=== PATIENT | female | born 1960 | race Caucasian/White ===

== ENCOUNTER → 2016-04-14 | Outpatient (CLI) | payer BC, SELFPAY ==
--- NOTE | ~2016-04-14 | MR73 ---
[facility] A Service of [facility] & [facility] RADIOLOGY TEXT RESULTS PATIENT: YAZMIN GIBBONS LOCATION: [facility] : 56 UNIT #: [id number] AGE: [address]: BEE NARANJO MD SEX: F ORDER DR: [id number] [address] [address] [id number] O MR#: [id number] Acc #: [id number] NAME: YAZMIN GIBBONS : 1960 SEX: F STUDY DATE/TIME: 04/14/2016 13:51 UNIT: [facility] ROOM: STUDY DESCRIPTION: MR Hand Wo Contrast Rt Attending Physician: Bee Naranjo M.D. Referring Physician: Bee Naranjo M.D. Ordering Physician: Bee Naranjo M.D. Primary Care Physician: Bee Naranjo M.D. MRI CENTER REPORT This report is preliminary unless electronic signature is present. EXAM MRI of the right hand without contrast. 04/14/2016. HISTORY Order states pain in right hand. History sheet states right hand pain for 1 month. Hand swelling around thumb region and pain to the touch. Decreased range of motion. No related trauma or surgery reported. COMPARISON Right hand radiographic report [facility] 03/15/2016, office notes [facility] 03/15/2016 and 03/17/2016. FINDINGS The exam was prospectively protocoled and performed without contrast as there was no documentation of a mass. Gelcaps were placed in the area of clinical concern and outline the palmar radial aspect of the hand in the region of the thenar eminence and first and second metacarpals. Deep to the markers is a 3.4 x 3.2 x 2.4 cm (craniocaudal by transverse by AP) largely fatty signal mass in the deep radial aspect of the hand. The mass is deep to the flexor pollicis longus tendon and deep to the thenar eminence muscles. The mass lies in the region of the opponens pollicis and adductor pollicis muscles. Linear soft tissue striations within the fatty mass suggest interspersed muscle fibers. There is no T2 hyperintensity or sizeable non-lipomatous soft tissue component. 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 A well-differentiated liposarcoma is considered much less likely. A small subcortical cyst of the distal ulnar aspect of the scaphoid is likely incidental. Bones are otherwise unremarkable. The described mass abuts the radial side of the flexor tendons of the STS. [facility] A Service of [facility] RADIOLOGY TEXT RESULTS PATIENT: YAZMIN GIBBONS LOCATION: [facility] : 56 UNIT #: [id number] AGE: [address]: BEE NARANJO MD SEX: F ORDER DR: index finger distal to the carpal tunnel. The exam is otherwise normal. IMPRESSION Large 3.4 x 3.2 x 2.4 cm fatty signal mass in the radial aspect of the right hand deep to the thenar muscles. 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 The mass is deep to the flexor pollicis longus tendon and just radial to the flexor tendons of the index finger. There is no noncontrast evidence of a definite liposarcoma. Well-differentiated liposarcoma is considered unlikely. Recommend consultation with hand surgery. Dictated by... Emily Roche M.D. THIS IS AN ELECTRONICALLY VERIFIED REPORT Emily Roche M.D. at 04/15/2016 2:30 PM MARGARITO/dayan TD: 04/15/2016 12:44 JOB #: [id number] MRI CENTER REPORT
== END | disposition home or self-care (01) ==
LOC: SMRI 13:13
DX: M79.641 Pain in right hand (principal); R22.31 Localized swelling, mass and lump, right upper limb
CPT/HCPCS: 73218